=== PATIENT | male | born 1990 | race Caucasian/White ===

== ENCOUNTER → 2016-08-18 | Outpatient (CLI) | payer BC | LOC: BHSO 13:52 | DX: F31.31 Bipolar disorder, current episode depressed, mild (principal) ==

== ENCOUNTER → 2016-10-13 | Outpatient (CLI) | payer BC | LOC: BHSO 13:38 | DX: F32.1 Major depressive disorder, single episode, moderate (principal) ==

== ENCOUNTER → 2016-10-17 | Outpatient (CLI) | payer BC | LOC: BHSO 08:58 | DX: F31.74 Bipolar disorder, in full remission, most recent episode manic (principal) ==

== ENCOUNTER → 2017-01-12 | Outpatient (CLI) | payer BC | LOC: BHSO 13:43 | DX: F31.2 Bipolar disorder, current episode manic severe with psychotic features (principal) ==

== ENCOUNTER → 2017-02-16 | Outpatient (CLI) | payer BC | LOC: BHSO 14:39 | DX: F31.73 Bipolar disorder, in partial remission, most recent episode manic (principal) ==

== ENCOUNTER → 2017-05-18 | Outpatient (CLI) | payer BC | LOC: BHSO 08:47 | DX: F31.31 Bipolar disorder, current episode depressed, mild (principal) ==

== ENCOUNTER → 2017-06-23 | Outpatient (CLI) | payer BC | LOC: BHSO 09:44 | DX: F31.2 Bipolar disorder, current episode manic severe with psychotic features (principal) ==